=== PATIENT | male | born 1995 | race Caucasian/White ===

== ENCOUNTER 2018-06-06 13:35 | Emergency (ER) | payer OTHER, MEDICAID ==
[~2018-06-06] VITALS: Ht 177.8 cm; Wt 70.5 kg
[~2018-06-06 13:35] MED LIST: DEPAKOTE 125MG125 M1 PO; DEPAKOTE 125MG125 MG PO; EPI-PEN1 MG/ML MR; ZOFRAN4 M1 PO
[2018-06-06] MEDS ORDERED: SUBVENITE150 MG PO (14:20)
[2018-06-06] MEDS ORDERED: CELEXA 20MG20 MG/TA1 PO (14:21)
[2018-06-06 15:38] VITALS: BP 119/80
== END 2018-06-06 15:38 | disposition home or self-care (01) ==
LOC: ED 13:35
DX: T85.01XA Breakdown (mechanical) of ventricular intracranial (communicating) shunt, initial encounter (principal); G91.9 Hydrocephalus, unspecified; G40.909 Epilepsy, unspecified, not intractable, without status epilepticus; Z79.899 Other long term (current) drug therapy

== ENCOUNTER → 2018-07-29 | Outpatient (CLI) | payer OTHER, MEDICAID ==
[~2018-07-29] MED LIST changes: +CELEXA 20MG20 MG/TA1 PO; +SUBVENITE150 MG PO
== END ==
LOC: RAD 07-28 16:51
DX: M81.0 Age-related osteoporosis without current pathological fracture (principal); Z86.69 Personal history of other diseases of the nervous system and sense organs; Z98.2 Presence of cerebrospinal fluid drainage device

== ENCOUNTER → 2019-06-14 | Outpatient (CLI) | payer OTHER, MEDICAID | LOC: RAD 15:56 → MAMMO 16:00 | DX: Z13.820 Encounter for screening for osteoporosis (principal); M85.851 Other specified disorders of bone density and structure, right thigh; M81.0 Age-related osteoporosis without current pathological fracture; M25.78 Osteophyte, vertebrae; G40.209 Localization-related (focal) (partial) symptomatic epilepsy and epileptic syndromes with complex partial seizures, not intractable, without status epilepticus ==

== ENCOUNTER → 2020-05-31 | Outpatient (CLI) | payer BC, MEDICAID ==
[2020-05-31 15:53] LABS: EOS # 0.4 (0.04-0.40); HEMATOCRIT 44.2 % (42.0-52.0); HEMOGLOBIN 14.6 g/dL (13.5-18.0); LYMPH# 2.1 (1.50-4.00); MEAN CELL VOLUME 94 fl (78-100); MEAN CORPUSCULAR HEMOGLOBIN 31 pg (27-31); MEAN CORPUSCULAR HGB CONC 33 g/dL (33-37); MEAN PLATELET VOLUME 9.1 fl (7.4-10.4); MONO # 0.6 (0.20-0.80); NEU # 5.4 (1.40-6.50); PLATELET COUNT 250 K/mm3 (130-400); RED BLOOD COUNT 4.72 M/mm3 (4.20-5.60); RED CELL DISTRIBUTION WIDTH 12.8 % (11.5-14.5); WHITE BLOOD COUNT 8.6 K/mm3 (4.8-10.8)
[2020-05-31 16:02] LABS: ALBUMIN 4.6 g/dL (3.5-5.0)
[2020-05-31 16:03] LABS: POTASSIUM 3.9 mmol/L (3.5-5.1)
[2020-05-31 16:05] LABS: TOTAL PROTEIN 7.7 g/dL (6.4-8.3)
[2020-05-31 16:07] LABS: TOTAL BILIRUBIN 0.3 mg/dL (0.2-1.2)
== END ==
LOC: LAB 15:38
DX: G40.209 Localization-related (focal) (partial) symptomatic epilepsy and epileptic syndromes with complex partial seizures, not intractable, without status epilepticus (principal)

== ENCOUNTER → 2022-05-21 | Outpatient (CLI) | payer BC, MEDICAID | LOC: RAD 09:51 → MAMMO 10:00 → RAD 10:00 | DX: M81.0 Age-related osteoporosis without current pathological fracture (principal); G40.209 Localization-related (focal) (partial) symptomatic epilepsy and epileptic syndromes with complex partial seizures, not intractable, without status epilepticus; Q03.9 Congenital hydrocephalus, unspecified ==

== ENCOUNTER → 2022-05-22 | Outpatient (CLI) | payer BC, MEDICAID ==
[2022-05-22 08:43] LABS: POTASSIUM 4.5 mmol/L (3.5-5.1)
[2022-05-22 08:44] LABS: ALBUMIN 4.7 g/dL (3.5-5.0)
[2022-05-22 08:45] LABS: CALCIUM 10.4 mg/dL (8.3-10.5)
[2022-05-22 08:46] LABS: TOTAL PROTEIN 8.1 g/dL (6.4-8.3)
[2022-05-22 11:48] LABS: TOTAL BILIRUBIN 0.3 mg/dL (0.2-1.2)
[2022-05-23 11:12] LABS: BASO # 0.04 K/mm3 (0.02-0.10); EOS # 0.34 K/mm3 (0.04-0.40); EOS % 4.5 % (0.0-4.0); HEMATOCRIT 54.2 % (42.0-52.0); HEMOGLOBIN 16.4 g/dL (13.5-18.0); LYMPH# 2.03 K/mm3 (1.50-4.00); MEAN CELL VOLUME 102 fl (78-100); MEAN CORPUSCULAR HEMOGLOBIN 31 pg (27-31); MEAN CORPUSCULAR HGB CONC 30 g/dL (33-37); MEAN PLATELET VOLUME 10.3 fl (7.4-10.4); MONO # 0.45 K/mm3 (0.20-0.80); NEU # 4.68 K/mm3 (1.40-6.50); PLATELET COUNT 273 K/mm3 (130-400); RED CELL DISTRIBUTION WIDTH 13.2 % (11.5-14.5); WHITE BLOOD COUNT 7.6 K/mm3 (4.8-10.8)
[2022-05-30 13:15] LABS: FOLATE (FOLIC ACID) 16.9
== END ==
LOC: LAB 08:14
PROVIDERS: Family Medicine
DX: Z00.00 Encounter for general adult medical examination without abnormal findings (principal); J30.9 Allergic rhinitis, unspecified; M81.0 Age-related osteoporosis without current pathological fracture; Q03.9 Congenital hydrocephalus, unspecified; G40.309 Generalized idiopathic epilepsy and epileptic syndromes, not intractable, without status epilepticus; B07.8 Other viral warts

== ENCOUNTER 2024-01-10 17:19 | Emergency (ER) | payer OTHER, MEDICAID ==
[~2024-01-10] VITALS: Ht 180.3 cm; Wt 85.0 kg
[2024-01-10] MEDS ORDERED: SERTRALINE HYD100 MG PO (17:32)
[2024-01-10] MEDS ORDERED: ALENDRONATE SOD70 MG PO (17:32)
[2024-01-10] MEDS ORDERED: Ketorolac 10 MG TAB PO ONE (18:00)
[2024-01-10 19:04] VITALS: BP 135/89
== END 2024-01-10 19:04 | disposition home or self-care (01) ==
LOC: ED 17:19
DX: S82.831A Other fracture of upper and lower end of right fibula, initial encounter for closed fracture (principal); Z91.040 Latex allergy status; W21.09XA Struck by other hit or thrown ball, initial encounter; Y93.6A Activity, physical games generally associated with school recess, summer camp and children
CPT/HCPCS: L4386